=== PATIENT | male | born 1960 | race Hispanic/Latino ===

== ENCOUNTER → 2017-07-17 | Outpatient (CLI) | payer OTHER ==
--- NOTE | 2017-07-17 14:43 | Diagnostic Imaging Report ---
PROCEDURE:ABDOMEN-1VIEW (KUB) TECHNIQUE:Supine AP abdomen totaling 2 radiographs INDICATION:Asymptomatic microscopic hematuria. COMPARISON:None. FINDINGS: See conclusion. CONCLUSION: 1. No irregular calcifications over the kidneys or ureters. 2. Small pelvic phleboliths. 3. Normal bowel gas pattern. 4. No evidence of organomegaly or ascites. 5. Intact skeleton. Dictated by: Mayito Bearden M.D. on 07/17/2017 at 14:42 Electronically approved by: Mayito Bearden M.D. on 07/17/2017 at 14:42
--- NOTE | 2017-07-17 18:07 | Diagnostic Imaging Report ---
PROCEDURE:US RETROPERITONEAL ( KIDNEY ). COMPARISON:None. INDICATIONS:Asymptomatic Microscopic Hematuria TECHNIQUE: June-scale and color sonographic images of the bilateral kidneys and bladder where obtained in transverse and longitudinal planes. FINDINGS: RIGHT KIDNEY: 11.8 cm, cortex 1.8 cm Cysts: 1.2 x 1.1 x 1.4 cm cystic, anechoic lesion in the mid aspect of the renal sinus, which may represent a peripelvic cyst. Solid masses: None Stones: None Hydronephrosis: None Echogenicity: Normal LEFT KIDNEY: 12.5 cm, cortex 2.4 cm Cysts: None Solid masses: None Stones: None Hydronephrosis: None Echogenicity: Normal Bladder: No focal lesions. Bilateral ureteral jets are identified. Prostate: 4.2 x 3.4 x 5.8 cm (estimated volume of 43 cc). Nodular, heterogeneous echotexture CONCLUSION: 1. Normal bilateral renal size, and echogenicity. No hydronephrosis, stones, or solid lesions. 2. 1.4 cm right peripelvic cyst. 3. Enlarged, nodular, heterogeneous prostate, which may be due to BPH. Sarath Javier M.D. Dictated by: Sarath Javier M.D. on 07/17/2017 at 18:07 Electronically approved by: Sarath Javier M.D. on 07/17/2017 at 18:07
== END ==
LOC: US 13:01
PROVIDERS: ATTEND Urology
DX: R31.9 Hematuria, unspecified (principal)
CPT/HCPCS: 74018; 76770

== ENCOUNTER 2020-04-26 09:16 | Emergency (ER) | payer OTHER ==
[~2020-04-26] VITALS: Ht 175.3 cm; Wt 78.9 kg
[2020-04-26] MEDS ORDERED: DEXAMETHASONE SOD PHOS 10 MG/1 ML VIAL IV ONE (09:45)
[2020-04-26 09:50] LABS: BASOPHILS % 0.1 % (0.0-1.0); HEMATOCRIT 38.2 % (38.2-49.6); HEMOGLOBIN 12.8 g/dL (14.0-18.0); LYMPHOCYTES # (AUTO) 0.8 (1.0-3.2); LYMPHOCYTES % 4.9 % (18.0-39.1); MEAN CORPUSCULAR HEMOGLOBIN 29.8 pg (28-32); MEAN CORPUSCULAR HGB CONC 33.5 g/dL (31-35); MEAN CORPUSCULAR VOLUME 88.8 fL (81-99); MONOCYTES # (AUTO) 0.5 (0.2-0.8); MONOCYTES % 3.3 % (4.4-11.3); NEUTROPHILS # (AUTO) 14.3 (2.1-6.9); NEUTROPHILS % 90.3 % (38.7-80.0); PLATELET COUNT 309 x10e3/uL (140-360); RED CELL DISTRIBUTION WIDTH 12.8 % (11.7-14.4)
[2020-04-26 10:12] LABS: ALANINE AMINOTRANSFERASE 32 IU/L (0-55); ALBUMIN 2.5 g/dL (3.5-5.0); ALBUMIN/GLOBULIN RATIO 0.5 (0.8-2.0); ALKALINE PHOSPHATASE 44 IU/L (40-150); ANION GAP 16.8 mmol/L (8-16); BLOOD UREA NITROGEN 19 mg/dL (7-26); BUN/CREATININE RATIO 20 (6-25); CALCIUM 10.1 mg/dL (8.4-10.2); CARBON DIOXIDE 23 mmol/L (22-29); CHLORIDE 101 mmol/L (98-107); CREATININE, SERUM 0.94 mg/dL (0.72-1.25); EST GLOMERULAR FILTRATION RATE > 60 ML/MIN (60-); GLUCOSE 175 mg/dL (74-118); POTASSIUM 3.8 mmol/L (3.5-5.1); SODIUM 137 mmol/L (136-145)
[2020-04-26 10:36] LABS: LYMPHOCYTES % (MANUAL) 6 % (19-48); MONOCYTES % (MANUAL) 1 % (3.4-9.0); NEUTROPHILS % (MANUAL) 93 % (40-74); PLATELET ESTIMATE ADEQUATE; PLATELET MORPHOLOGY COMMENT NORMAL; RBC MORPHOLOGY COMMENT NORMAL
[2020-04-26] MEDS ORDERED: IOPAMIDOL 370 MG/ML 200 ML INFUS..BTL INJ ONE (10:50)
[2020-04-26] MEDS ORDERED: SODIUM CHLORIDE 0.9% 50ML 50 ML ONE (10:50)
== END 2020-04-26 15:17 | disposition other institution (70) ==
LOC: ER 09:22
DX: U07.1 COVID-19 (principal); R09.02 Hypoxemia; E11.65 Type 2 diabetes mellitus with hyperglycemia
CPT/HCPCS: 36415; 71045; 71260; 80053; 82948; 83605; 83880; 84484; 85025; 85379; 93005; 99284; J1100; Q9967; U0002

== ENCOUNTER → 2021-08-17 | Outpatient (CLI) | payer OTHER | LOC: CT 14:07 | PROVIDERS: ATTEND Urology | DX: N20.0 Calculus of kidney (principal) | CPT/HCPCS: 74176 ==